=== PATIENT | female | born 1930 | race African-American/Black ===

== ENCOUNTER 2016-11-06 19:03 | Emergency (ER) | payer MEDICARE, BC ==
[~2016-11-06] VITALS: Ht 160 cm; Wt 70.0 kg
[~2016-11-06 19:03] MED LIST: AMLODIPINE; ASPI-785; LISI-604; PRAV40TA
[2016-11-06 21:33] VITALS: BP 144/79
== END 2016-11-06 21:39 | disposition home or self-care (01) ==
LOC: ER 20:14
DX: L03.012 Cellulitis of left finger (principal); Z88.0 Allergy status to penicillin; Z79.899 Other long term (current) drug therapy; Z79.82 Long term (current) use of aspirin; I10 Essential (primary) hypertension; E78.00 Pure hypercholesterolemia, unspecified; Z87.891 Personal history of nicotine dependence
CPT/HCPCS: 73140; 99284

== ENCOUNTER 2017-07-08 12:38 | Emergency (ER) | payer MEDICARE, BC ==
[~2017-07-08] VITALS: Ht 167.6 cm; Wt 74.0 kg
[2017-07-08 15:18] VITALS: BP 131/60
== END 2017-07-08 15:20 | disposition home or self-care (01) ==
LOC: ER 13:33
DX: R04.0 Epistaxis (principal); I10 Essential (primary) hypertension; E78.00 Pure hypercholesterolemia, unspecified; Z79.82 Long term (current) use of aspirin; Z88.0 Allergy status to penicillin; Z95.0 Presence of cardiac pacemaker; Z98.890 Other specified postprocedural states
CPT/HCPCS: 99281

== ENCOUNTER 2019-04-10 16:39 | Emergency (ER) | payer MEDICARE, BC ==
[~2019-04-10] VITALS: Ht 160 cm; Wt 76.0 kg
[2019-04-10] MEDS ORDERED: DIPHENHYDRAMINE 25MG CAPSULE PO ONE (19:45)
[2019-04-10 20:03] VITALS: BP 148/83
== END 2019-04-10 20:03 | disposition home or self-care (01) ==
LOC: ER 16:39
DX: S80.861A Insect bite (nonvenomous), right lower leg, initial encounter (principal); L03.115 Cellulitis of right lower limb; M67.431 Ganglion, right wrist; W57.XXXA Bitten or stung by nonvenomous insect and other nonvenomous arthropods, initial encounter; Y93.89 Activity, other specified; Y92.018 Other place in single-family (private) house as the place of occurrence of the external cause
CPT/HCPCS: 99283; Q0163

== ENCOUNTER 2020-01-17 16:24 | Inpatient (IN) | payer MEDICARE, BC ==
[~2020-01-17] VITALS: Ht 167.6 cm; Wt 77.1 kg
[2020-01-17] MEDS ORDERED: KETOROLAC 30MG/ML VIAL IV STA (17:44)
[2020-01-17] MEDS ORDERED: CLINDAMYCIN 600 MG in DEXTROSE 5% WATER 50 ML IV ONE (17:45)
[2020-01-17] MEDS ORDERED: CLINDAMYCIN 600MG PREMIX 50 ML IV SCH (18:15)
[2020-01-17 18:51] LABS: BASOPHILS % 2.1 % (0.0-2.0); CLARITY URINE CLEAR (CLEAR); COLOR URINE YELLOW (YELLOW); EOSINOPHILS % 6.3 % (0.0-5.0); HEMATOCRIT. 39.2 % (36.0-48.0); HEMOGLOBIN. 12.9 g/dL (12.0-16.0); KETONES URINE NEGATIVE (NEGATIVE); LEUKOCYTE ESTERASE URINE NEGATIVE (NEGATIVE); LYMPHOCYTES % 28.7 % (20.0-50.0); MEAN CORPUSCULAR HEMOGLOBIN 30.3 pg (28.0-32.0); MEAN PLATELET VOLUME 8.8 fl (7.4-10.4); NEUTROPHILS % 52.9 % (40.0-76.0); NITRITE URINE NEGATIVE (NEGATIVE); OCCULT BLOOD URINE NEGATIVE (NEGATIVE); PLATELET 140 x1000/uL (130-400); PROTEIN URINE NEGATIVE (NEGATIVE); RED BLOOD CELL COUNT 4.25 mill/uL (4.2-5.4); RED CELL DISTRIBUTION WIDTH 15.8 % (11.6-14.6); SPECIFIC GRAVITY URINE 1.008 (1.005-1.030); UROBILINOGEN URINE 0.2 E.U./dL (0.2-1.0)
[2020-01-17 18:59] LABS: CHLORIDE 111 mEq/L (98-107)
[2020-01-17 19:10] LABS: PROTHROMBIN TIME 10.9 sec (9.6-11.0)
[2020-01-17] MEDS ORDERED: DIPHENHYDRAMINE 50MG/ML VIAL IV ONE (19:15)
[2020-01-17] MEDS ORDERED: KETOROLAC 15MG/ML VIAL IV PRN (22:15)
[2020-01-17] MEDS ORDERED: CLONIDINE 0.1MG TABLET PO PRN (22:15)
[2020-01-17 23:45] VITALS: BP 170/87
[2020-01-18] VITALS: BP 170/87
[2020-01-18] MEDS: CLINDAMYCIN 600MG PREMIX 50 ML IV SCH ×2 (02:54→09:16)
[2020-01-18 04:00] VITALS: BP 123/65
[2020-01-18 08:00] VITALS: BP 130/75
[2020-01-18] MEDS: ENOXAPARIN 30MG/0.3ML SYR SUBCUT SCH (09:14)
[2020-01-18 12:00] VITALS: BP 136/69
[2020-01-18 16:00] VITALS: BP 132/70
[2020-01-18] MEDS ORDERED: DIPHENHYDRAMINE HCL/ZINC ACET 28 GM CREAM TOP PRN (17:00)
[2020-01-18 17:16] LABS: BASOPHILS % 2.8 % (0.0-2.0); EOSINOPHILS % 6.4 % (0.0-5.0); HEMATOCRIT. 36.4 % (36.0-48.0); LYMPHOCYTES % 30.4 % (20.0-50.0); MEAN CORPUSCULAR HEMOGLOBIN 30.3 pg (28.0-32.0); MEAN CORPUSCULAR VOLUME 92.4 fL (81.0-99.0); MEAN PLATELET VOLUME 8.3 fl (7.4-10.4); MONOCYTES % 11.5 % (2.0-8.0); NEUTROPHILS % 48.9 % (40.0-76.0); PLATELET 131 x1000/uL (130-400); RED BLOOD CELL COUNT 3.94 mill/uL (4.2-5.4); RED CELL DISTRIBUTION WIDTH 15.8 % (11.6-14.6)
[2020-01-18 20:00] VITALS: BP 139/70
[2020-01-19] VITALS: BP 143/73
[2020-01-19 04:00] VITALS: BP 126/69
[2020-01-19 08:00] VITALS: BP 155/84
[2020-01-19] MEDS: ENOXAPARIN 30MG/0.3ML SYR SUBCUT SCH (08:58)
[2020-01-19 12:00] VITALS: BP 162/84
[2020-01-19 13:01] VITALS: BP 162/84
== END 2020-01-19 14:26 | disposition home or self-care (01) | DRG 602 ==
LOC: ER 16:24 → EDBEDREQSVC 20:01 → 6EST 21:43
PROVIDERS: ADMIT Internal Medicine; ATTEND Emergency Medicine
DX: L03.116 Cellulitis of left lower limb (principal); N17.0 Acute kidney failure with tubular necrosis; L03.115 Cellulitis of right lower limb; E78.00 Pure hypercholesterolemia, unspecified; E78.5 Hyperlipidemia, unspecified; M19.90 Unspecified osteoarthritis, unspecified site; I10 Essential (primary) hypertension; Z88.0 Allergy status to penicillin; Z79.82 Long term (current) use of aspirin; Z79.899 Other long term (current) drug therapy
CPT/HCPCS: 36415; 71045; 80048; 80053; 81003; 83605; 83880; 84145; 85025; 93005; 93970; 97162; 99285; J1650; J1885; J3490; J7060

== ENCOUNTER 2020-03-15 02:33 | Emergency (ER) | payer MEDICARE, BC ==
[~2020-03-15] VITALS: Ht 165.1 cm; Wt 71.0 kg
[2020-03-15] MEDS ORDERED: SODIUM CHLORIDE 0.9% 500 ML IV ONE (02:45)
[2020-03-15 03:07] LABS: BASOPHILS % 0.9 % (0.0-2.0); EOSINOPHILS % 0.9 % (0.0-5.0); HEMATOCRIT. 32.1 % (36.0-48.0); HEMOGLOBIN. 10.4 g/dL (12.0-16.0); LYMPHOCYTES % 12.5 % (20.0-50.0); MEAN CORPUSCULAR HEMOGLOBIN 30.3 pg (28.0-32.0); MEAN CORPUSCULAR VOLUME 93.6 fL (81.0-99.0); MEAN PLATELET VOLUME 9.3 fl (7.4-10.4); MONOCYTES % 4.4 % (2.0-8.0); NEUTROPHILS % 81.3 % (40.0-76.0); PLATELET 153 x1000/uL (130-400); RED BLOOD CELL COUNT 3.43 mill/uL (4.2-5.4)
[2020-03-15 03:13] LABS: CHLORIDE 113 mEq/L (98-107)
[2020-03-15] MEDS ORDERED: ONDANSETRON HCL 4MG/2ML INJ IV ONE (03:45)
[2020-03-15] MEDS ORDERED: MORPHINE SULFATE 2 MG/ML CPJ (NOT FOR IM USE) IV ONE (03:45)
[2020-03-15] MEDS ORDERED: MORPHINE SULFATE 4 MG/ML CPJ (NOT FOR IM USE) IV SCH (05:00)
[2020-03-15] MEDS ORDERED: CEFTRIAXONE 1 G PREMIX 50 ML IV SCH (05:15)
[2020-03-15] MEDS ORDERED: NOREPINEPHRINE 4MG/250ML PMX 250 ML IV ONE ×2 (05:29→05:30)
[2020-03-15] MEDS ORDERED: MORPHINE SULFATE 4 MG/ML CPJ (NOT FOR IM USE) IV ONE (05:30)
[2020-03-15] MEDS ORDERED: MIDAZOLAM HCL 50 MG in DEXTROSE 5% WATER 40 ML IV ONE (05:45)
[2020-03-15] MEDS ORDERED: LORAZEPAM 2MG/ML CPJ ONE (05:45)
[2020-03-15] MEDS ORDERED: FENTANYL CITRATE/PF 2,500 MCG in SODIUM CHLORIDE 0.9% 200 ML IV PRN ×2 (05:45→06:15)
[2020-03-15 06:11] LABS: INR 1.2; PARTIAL THROMBOPLASTIN TIME 26.7 sec (23.4-31.0); PROTHROMBIN TIME 12.8 sec (9.6-11.0)
[2020-03-15] MEDS ORDERED: MIDAZOLAM HCL 100 MG in DEXT 5% WATER 80 ML IV SCH (06:15)
[2020-03-15] MEDS ORDERED: SODIUM CHLORIDE 0.9% 1,000 ML IV ONE (07:51)
[2020-03-15] MEDS ORDERED: PHENYLEPHRINE 10 MG in DEXT 5% WATER 249 ML IV STA ×2 (07:51→07:55)
[2020-03-15 08:15] VITALS: BP 80/49
== END 2020-03-15 08:46 | disposition short-term general hospital (02) ==
LOC: ER 02:46
DX: I71.3 Abdominal aortic aneurysm, ruptured (principal); I10 Essential (primary) hypertension; E78.00 Pure hypercholesterolemia, unspecified; Z88.0 Allergy status to penicillin; Z79.899 Other long term (current) drug therapy; Z79.82 Long term (current) use of aspirin
CPT/HCPCS: 31500; 36415; 71045; 74176; 80053; 83690; 83880; 84484; 85025; 85610; 85730; 86850; 86900; 86901; 86920; 93005; 94002; 96365; 96375; 99291; J2060; J2250; J2270; J2370; J2405; J3490; J7030; J7040; J7060; 96374; P9016; P9021